=== PATIENT | male | born 1970 | race Caucasian/White ===

== ENCOUNTER 2017-05-18 18:39 | Emergency (ER) | payer OTHER ==
[~2017-05-18] VITALS: Ht 190.5 cm; Wt 99.8 kg
[2017-05-18] MEDS ORDERED: FLEXERIL PO (19:34)
[2017-05-18] MEDS ORDERED: HYDROCODONE-AP1 EAC6 PO (19:34)
[2017-05-18] MEDS ORDERED: IBUPROFEN 600600 M1 PO (19:34)
[2017-05-18 19:41] VITALS: BP 118/72
== END 2017-05-18 19:46 | disposition home or self-care (01) ==
LOC: ER 18:39
DX: S16.1XXA Strain of muscle, fascia and tendon at neck level, initial encounter (principal); S20.219A Contusion of unspecified front wall of thorax, initial encounter; M54.6 Pain in thoracic spine; V89.2XXA Person injured in unspecified motor-vehicle accident, traffic, initial encounter; Y93.89 Activity, other specified; Y92.89 Other specified places as the place of occurrence of the external cause; Y99.8 Other external cause status